=== PATIENT | male | born 1960 | race Caucasian/White ===

== ENCOUNTER 2017-06-09 11:18 | Day surgery (SDC) | payer BC ==
[~2017-06-09 11:18] MED LIST: Aspir 8181 MG PO; LOSARTAN POTAS100 MG
== END 2017-06-09 13:45 | disposition home or self-care (01) ==
LOC: ORSCSDS 11:18
PROVIDERS: Internal Medicine Gastroenterology
PROC: 3E0H8GC Introduction of Other Therapeutic Substance into Lower GI, Via Natural or Artificial Opening Endoscopic (ICD-10-PCS; principal; 2017-06-09 13:00)
PROC: 0DBP8ZX Excision of Rectum, Via Natural or Artificial Opening Endoscopic, Diagnostic (ICD-10-PCS; principal; 2017-06-09 13:00)
DX: K62.5 Hemorrhage of anus and rectum (principal); K92.1 Melena; K64.8 Other hemorrhoids; K62.1 Rectal polyp; I10 Essential (primary) hypertension; E78.5 Hyperlipidemia, unspecified; E66.9 Obesity, unspecified; Z68.35 Body mass index [BMI] 35.0-35.9, adult; Z79.82 Long term (current) use of aspirin; Z79.899 Other long term (current) drug therapy
CPT/HCPCS: 88305; J7120

== ENCOUNTER 2023-06-07 09:17 | Emergency (ER) | payer BC ==
[~2023-06-07] VITALS: Ht 167.6 cm; Wt 86.2 kg
[2023-06-07 09:48] LABS: BASOPHILS ABSOLUTE AUTO 0.07 K/mm3 (0.00-0.23); BASOPHILS PERCENT AUTO 1 % (0-2); EOSINOPHILS ABSOLUTE AUTO 0.09 K/mm3 (0.00-0.68); EOSINOPHILS PERCENT AUTO 1 % (0-6); Hematocrit 45.4 % (37.0-53.0); Hemoglobin 16.2 g/dL (13.5-17.5); IMMATURE GRAN ABSOLUTE AUTO 0.04 K/mm3 (0.00-0.10); IMMATURE GRAN PERCENT AUTO 0 % (0-1); LYMPHOCYTES ABSOLUTE AUTO 3.98 K/mm3 (0.84-5.20); LYMPHOCYTES PERCENT AUTO 33 % (21-46); MONOCYTES ABSOLUTE AUTO 1.21 K/mm3 (0.16-1.47); MONOCYTES PERCENT AUTO 10 % (4-13); Mean Corpuscular HGB Conc 35.7 g/dL (31.5-36.5); Mean Corpuscular Volume 90 fL (80-100); Mean Platelet Volume 9.2 fL (9.1-12.4); NEUTROPHILS ABSOLUTE AUTO 6.83 K/mm3 (1.96-9.15); NEUTROPHILS PERCENT AUTO 56 % (41-73); Platelet Count 244 K/mm3 (150-400); RDW Coefficient Variation 12.5 % (11.7-14.2); RDW Standard Deviation 41.1 fL (35.1-46.3); Red Blood Cell Count 5.06 M/mm3 (4.30-5.90); White Blood Cell Count 12.22 K/mm3 (4.00-11.30)
[2023-06-07 09:56] LABS: International Normalized Ratio 0.96; Prothrombin Time Results 10.1 Sec (9.7-11.5)
[2023-06-07 10:08] LABS: Albumin/Globulin Ratio 1.1 (0.8-1.8); Bilirubin, Total 0.7 mg/dL (0.1-1.0); Bun/Creatinine Ratio 15.5 (12.0-20.0); Calcium, Blood 9.2 mg/dL (8.5-10.1); Creatinine, Blood 1.29 mg/dL (0.60-1.20); Globulin, Blood 3.8 g/dL (2.2-4.0); Potassium, Blood 3.7 mmol/L (3.5-5.5); Total Protein, Blood 7.8 g/dL (6.4-8.2)
[2023-06-07 11:12] VITALS: BP 142/59
== END 2023-06-07 11:13 | disposition home or self-care (01) ==
LOC: ER 09:17
PROVIDERS: Emergency Medicine
DX: I61.0 Nontraumatic intracerebral hemorrhage in hemisphere, subcortical (principal); G81.91 Hemiplegia, unspecified affecting right dominant side; R47.01 Aphasia; I10 Essential (primary) hypertension; Z79.899 Other long term (current) drug therapy
CPT/HCPCS: 70450; 80053; 82947; 85025; 85610; 85730; 93005; 93010; 96374; 96375; 99285-25; J0360; J2405; J7050

== ENCOUNTER 2024-05-09 06:09 | Day surgery (SDC) | payer BC, OTHER ==
[~2024-05-09] VITALS: Ht 165.1 cm; Wt 75.4 kg
[2024-05-09] MEDS ORDERED: Lactated Ringer's 1,000 ML IV ONE ×2 (06:10→06:46)
[2024-05-09] MEDS ORDERED: FentaNYL Citrate 50 MCG/ML 2 ML Injection ONE ×2 (07:02→09:17)
[2024-05-09] MEDS ORDERED: propofoL 20 ML IV ONE (07:02)
[2024-05-09] MEDS ORDERED: CeFAZolin Sodium 2,000 MG VIAL ONE (07:17)
[2024-05-09] MEDS ORDERED: Dexamethasone Sod Phos 10 MG/ML 1ML VIAL ONE (07:36)
[2024-05-09] MEDS ORDERED: Ondansetron HCl 2 MG / ML 2ML Vial ONE (07:36)
[2024-05-09] MEDS ORDERED: Bupivacaine 0.5% HCl 5 MG/ML 30MLVIAL INJ ONE (07:52)
[2024-05-09] MEDS ORDERED: HYDROcodone 5-APAP 325 TAB ONE (09:53)
--- NOTE | 2024-05-09 09:58 | NUR ---
05/09/24 0958 Laine Corrales REPORT RECIEVED FROM [facility] DONATO. PT STATES PAIN 3/10, TOLERABLE POST IV FENTANYL. PO NORCO 5/325 OFFER TO PT TO MAINTAIN PAIN CONTROL PER SDU ORDERS, PT AGREED WOULD BE HELFUL TO MANAGE PAIN. VSS ON RA
[2024-05-09 10:13] VITALS: BP 141/86
== END 2024-05-09 11:00 | disposition home or self-care (01) ==
LOC: ORSCSDS 06:09
PROVIDERS: Surgery
PROC: 0YU50JZ Supplement Right Inguinal Region with Synthetic Substitute, Open Approach (ICD-10-PCS; principal; 2024-05-09 07:30)
DX: K40.90 Unilateral inguinal hernia, without obstruction or gangrene, not specified as recurrent (principal); D17.6 Benign lipomatous neoplasm of spermatic cord; I10 Essential (primary) hypertension; I25.10 Atherosclerotic heart disease of native coronary artery without angina pectoris; G47.33 Obstructive sleep apnea (adult) (pediatric); I69.320 Aphasia following cerebral infarction; I69.341 Monoplegia of lower limb following cerebral infarction affecting right dominant side; Z79.899 Other long term (current) drug therapy
CPT/HCPCS: A9270; C1781; J0690; J1100; J2405; J2704; J3010; J7120